=== PATIENT | male | born 1975 | race African-American/Black ===

== ENCOUNTER 2022-01-03 10:33 | Emergency (ER) | payer OTHER ==
[~2022-01-03] VITALS: Ht 182.9 cm; Wt 102.3 kg
[2022-01-03] MEDS ORDERED: DULO-114 PO (10:59)
[2022-01-03] MEDS ORDERED: IBUP-2070 PO (10:59)
[2022-01-03] MEDS ORDERED: MAXIOS OU (11:01)
[2022-01-03] MEDS: PROPARACAINE HCL 0.5% 15 ML OPHTHALMIC SOLUTION OU ONE (11:36)
[2022-01-03] MEDS: FLUORESCEIN SODIUM 1 MG STRIP OU ONE (11:37)
[2022-01-03 11:43] LABS: BASOPHILS % (AUTO) 0.6 % (0.0-2.0); EOSINOPHILS % (AUTO) 0.3 % (1.0-6.0); HEMATOCRIT 45.3 % (41-53); LYMPHOCYTES # (AUTO) 1.1 K/uL (1.0-4.8); LYMPHOCYTES % (AUTO) 15.8 % (22.0-44.0); MEAN CORPUSCULAR HEMOGLOBIN 29.5 pg (26.0-34.0); MEAN CORPUSCULAR HGB CONC 33.1 G/dL (31.0-37.0); MEAN CORPUSCULAR VOLUME 89 fL (80-100); MONOCYTES # (AUTO) 0.5 K/uL (0.1-1.0); MONOCYTES % (AUTO) 6.5 % (2.0-9.0); NEUTROPHILS # (AUTO) 5.5 K/uL (1.8-7.7); NEUTROPHILS % (AUTO) 76.8 % (40.0-70.0); PLATELET COUNT (AUTO) 249 K/uL (150-450); RED BLOOD CELL COUNT(AUTO) 5.08 MIL/uL (4.50-5.90); RED CELL DISTRIBUTION WIDTH 13.6 % (11.5-14.5)
[2022-01-03 11:54] LABS: ANION GAP 11 mmol/L (8-16); CALCIUM, TOTAL 9.7 mg/dL (8.8-10.5); CARBON DIOXIDE 24 mmol/L (22-29); CHLORIDE 102 mmol/L (98-107); CREATININE 0.91 mg/dL (0.60-1.30); GLOMERULAR FILTR. RATE CALC > 60 mL/min (>60); GLUCOSE,RANDOM 103 mg/dL (70-110); POTASSIUM 3.8 mmol/L (3.5-5.1); SODIUM SERUM 137 mmol/L (136-145); UREA NITROGEN, BLOOD 6 mg/dL (7-18)
[2022-01-03 12:01] LABS: LACTIC ACID 1.5 mmol/L (0.4-2.0)
[2022-01-03] MEDS: AMPICILLIN SODIUM/SULBACTAM NA 3 GM in SODIUM CHLORIDE 0.9% 100 ML IV ONE (12:05)
[2022-01-03 12:08] LABS: ALANINE AMINOTRANSFERASE 58 U/L (12-78); ALBUMIN 4.1 g/dL (3.4-5.0); ALKALINE PHOSPHATASE 108 U/L (46-116); ASPARTATE AMINOTRANSFERASE 37 U/L (15-37); BILIRUBIN,TOTAL 0.4 mg/dL (0.1-1.0)
[2022-01-03] MEDS: KETOROLAC TROMETHAMINE 30 MG/ML VIAL IVP ONE (12:20)
[2022-01-03] MEDS: MORPHINE SULFATE 2 MG/ML SYRINGE IVP ONE (12:20)
[2022-01-03 12:52] LABS: COVID AG,FIA SOURCE NASOPHARYNGEAL
[2022-01-03] MEDS: ACYCLOVIR 1,000 MG in DEXTROSE 5%-WATER 150 ML IV ONE (13:20)
[2022-01-03] MEDS: VANCOMYCIN 1GM/WATER(PEG/NADA) 200 ML IV ONE (13:44)
[2022-01-03] MEDS ORDERED: HYDROCODONE/ACETAMINOPHEN 5-325 MG TABLET PO PRN (15:00)
[2022-01-03] MEDS ORDERED: MORPHINE SULFATE 2 MG/ML SYRINGE IVP PRN (15:00)
[2022-01-03] MEDS ORDERED: ZOLPIDEM TARTRATE 5 MG TABLET PO PRN (15:00)
[2022-01-03] MEDS ORDERED: MAGNESIUM HYDROXIDE SUSPENSION 30 ML UDCUP PO PRN (15:00)
[2022-01-03] MEDS ORDERED: BISACODYL 10 MG RECTAL RECTAL SUPPOSITORY PR PRN (15:00)
[2022-01-03] MEDS ORDERED: ONDANSETRON HCL 4 MG/2 ML VIAL IVP PRN (15:00)
[2022-01-03] MEDS: *CLINICAL-RX DOSING [ENTER DRUG IN COMMENTS] CLINICAL ONE (15:06)
[2022-01-03 17:46] VITALS: BP 127/77
[2022-01-03] MEDS: ACETAMINOPHEN 325 MG TABLET PO PRN (20:02)
[2022-01-03] MEDS ORDERED: DOCUSATE SODIUM 100 MG CAPSULE PO SCH (21:00)
[2022-01-03] MEDS ORDERED: ACYCLOVIR IV SCH (21:00)
[2022-01-03] MEDS ORDERED: WATER IV SCH (21:00)
[2022-01-03] MEDS ORDERED: DEXTROSE 5% IV SCH (21:00)
[2022-01-04] MEDS ORDERED: PANTOPRAZOLE SODIUM 40 MG DR TABLET PO SCH (09:00)
== END 2022-01-03 20:30 | disposition short-term general hospital (02) ==
LOC: EMS 10:38
DX: B02.30 Zoster ocular disease, unspecified (principal); Z20.822 Contact with and (suspected) exposure to COVID-19; R21 Rash and other nonspecific skin eruption; R51.9 Headache, unspecified
CPT/HCPCS: 99285; 70450; 96365; 96375; 87426; 80053; 83605; 85025; 87040; 36415; 73502; 73552; 73610; 70487; 96368; J0133; J1885; J2270; J0295; Q9967; J7060; J7050; 96366